=== PATIENT | male | born 1990 | race African-American/Black ===

== ENCOUNTER 2022-07-01 17:32 | Inpatient (IN) | payer OTHER ==
[2022-07-01 17:36] VITALS: BMI 25.3
[2022-07-01] MEDS ORDERED: SODIUM CHLORIDE 0.9% 500 ML INFUS.BAG IV ONE (18:07)
[2022-07-01 19:22] LABS: BASO % 1.2 % (0-2.0); EOS % 1.8 % (0-4.5); HEMATOCRIT 43.4 % (35.4-49); HEMOGLOBIN 15.2 GM/dL (11.7-16.9); LYMPH % 37.6 % (8-40); MCH 31.7 pg (25.7-33.7); MCHC 34.9 g/dl (32.0-35.9); MEAN CELL VOLUME 90.6 fl (80-96); MEAN PLT VOLUME 7.4 fl (7.5-11.1); MONO % 5.6 % (3.8-10.2); NEUT % 53.8 % (42.8-82.8); PLATELET COUNT 372 10^3/uL (134-434); RBC 4.79 M/mm3 (4.00-5.60); WHITE BLOOD COUNT 6.4 K/mm3 (4.0-10.0)
[2022-07-01 19:33] LABS: EPI CELLS 4 /uL (0-25.1); HYALINE CASTS 0 /uL (0-3.1); URINE APPEARANCE CLEAR; URINE BACTERIA 53 /uL (0-1359); URINE BILIRUBIN NEGATIVE (NEGATIVE); URINE COLOR YELLOW; URINE GLUCOSE (UA) NEGATIVE (NEGATIVE); URINE KETONE TRACE (NEGATIVE); URINE LEUK ESTERASE TRACE (NEGATIVE); URINE NITRITE NEGATIVE (NEGATIVE); URINE PROTEIN NEGATIVE (NEGATIVE); URINE RBC 15 /uL (0-23.9); URINE UROBILINOGEN 0.2 mg/dL (0.2-1.0); URINE WBC 22 /uL (0-25.8)
[2022-07-01 20:33] LABS: CALCIUM 9.2 mg/dL (8.5-10.1)
[2022-07-01 20:34] LABS: ALBUMIN 4.5 g/dl (3.4-5.0); BLOOD UREA NITROGEN 9.1 mg/dL (7-18); MAGNESIUM 1.9 mg/dL (1.8-2.4)
[2022-07-01 20:39] LABS: BILIRUBIN,TOTAL 0.7 mg/dL (0.2-1); TOT PROT 8.2 g/dl (6.4-8.2)
[2022-07-01] MEDS ORDERED: ASPIRIN 325 MG TABLET PO ONE (23:19)
[2022-07-01] MEDS ORDERED: ASPIRIN 325 MG TABLET ONE (23:28)
[2022-07-02 03:30] VITALS: TEMP 98.5
[2022-07-02] MEDS ORDERED: ASPIRIN 81 MG CHEWABLE TABLETS PO SCH (10:00)
[2022-07-02] MEDS ORDERED: ENOXAPARIN NA (PORCINE) 40 MG/0.4 ML DISP.SYRIN SQ SCH (10:00)
[2022-07-02] MEDS ORDERED: metoPROLOL SUCCINATE 25 MG TAB.SR.24H (FP) PO SCH (10:00)
[2022-07-02 12:40] LABS: HEMATOCRIT 43.6 % (35.4-49); HEMOGLOBIN 14.8 GM/dL (11.7-16.9); MCH 31.2 pg (25.7-33.7); MCHC 33.9 g/dl (32.0-35.9); MEAN CELL VOLUME 91.9 fl (80-96); MEAN PLT VOLUME 7.2 fl (7.5-11.1); PLATELET COUNT 372 10^3/uL (134-434); RBC 4.75 M/mm3 (4.00-5.60); RDW 13.2 % (11.9-15.9); WHITE BLOOD COUNT 7.8 K/mm3 (4.0-10.0)
[2022-07-02 13:09] LABS: ALBUMIN 4.1 g/dl (3.4-5.0); BILIRUBIN,TOTAL 0.5 mg/dL (0.2-1); BLOOD UREA NITROGEN 6.8 mg/dL (7-18); CALCIUM 9.1 mg/dL (8.5-10.1); MAGNESIUM 2.1 mg/dL (1.8-2.4); PHOSPHOROUS 3.4 mg/dL (2.5-4.9); TOT PROT 7.2 g/dl (6.4-8.2)
[2022-07-02] MEDS ORDERED: metoPROLOL SUCCINATE 25 MG TAB.SR.24H (FP) PO ONE (13:32)
[2022-07-02] MEDS ORDERED: ENOXAPARIN NA (PORCINE) 40 MG/0.4 ML DISP.SYRIN SQ ONE (13:33)
[2022-07-02] MEDS ORDERED: ASPIRIN 81 MG CHEWABLE TABLETS ONE (13:33)
[2022-07-02 16:26] VITALS: BP 140/88; PULSE 67; RESP 20
== END 2022-07-02 16:57 | disposition home or self-care (01) | DRG 201 ==
LOC: JER 17:32 → JERBED 19:41
PROVIDERS: ADMIT Hospitalist; ATTEND Internal Medicine
DX: I48.91 Unspecified atrial fibrillation (principal); I24.8 Other forms of acute ischemic heart disease; I10 Essential (primary) hypertension; R55 Syncope and collapse
CPT/HCPCS: 0241U-QW; 36415; 71045-TC-FY; 80053; 81003; 83735; 84100; 84443; 84484; 85025; 85027; 87086; 93005; 93010; 93306-TC; 99285-25

== ENCOUNTER → 2022-07-08 | Emergency (ER) | payer OTHER ==
[2022-07-08 16:54] VITALS: BP 152/81; PULSE 68; RESP 19; TEMP 98.6; BMI 24.7
== END ==
LOC: JER 16:49
DX: R42 Dizziness and giddiness (principal); R53.1 Weakness
CPT/HCPCS: 93005; 93010; 99283-25